=== PATIENT | male | born 1975 | race Caucasian/White ===

== ENCOUNTER 2016-11-29 20:40 | Emergency (ER) | payer OTHER ==
[2016-11-29 21:00] VITALS: BP 158/90; PULSE 85; TEMP 98.6; BMI 42.2
--- NOTE | 2016-11-29 21:37 | PDOC ---
History of Present Illness - General Chief Complaint: Pain, Acute Stated Complaint: STOMACH PAIN AND BLOOD IN URINE Time Seen by Provider: 11/29/16 21:37 - History of Present Illness Initial Comments: 11/29/16 23:48 The patient was examined by [KYLAH Sharma] under my direct supervision. I personally evaluated the patient. I concur with the above findings and the plan of care. Past History - Past Medical History Allergies/Adverse Reactions: Allergies Allergy/AdvReac Type Severity Reaction Status Date / Time No Known Allergies Allergy Verified 11/29/16 21:00 Home Medications: Ambulatory Orders NK [No Known Home Medication] 11/29/16 - Psycho/Social/Smoking Cessation Hx Suicidal Ideation: No Smoking History: Never smoked Hx Alcohol Use: No *Physical Exam - Vital Signs Last Vital Signs Temp Pulse Resp BP Pulse Ox 98.6 F 85 18 158/90 98 11/29/16 20:56 11/29/16 20:56 11/29/16 20:56 11/29/16 20:56 11/29/16 20:56 ED Treatment Course - LABORATORY CBC & Chemistry Diagram: 11/29/16 22:08 11/29/16 22:08 *DC/Admit/Observation/Transfer Diagnosis at time of Disposition: Renal calculus, left - Discharge Dispostion Disposition: HOME Condition at time of disposition: Improved - Referrals Referrals: Arthur Arroyo MD., MD [Staff Physician] - - Patient Instructions Printed Discharge Instructions: DI for Kidney Stones Additional Instructions: Increase fluids Take tylenol/motrin as needed for pain Follow up with your urologist or the one listed on your discharge Return back to the ER for severe/persistent/worsening symptoms
--- NOTE | 2016-11-29 22:23 | PDOC ---
History of Present Illness - General Chief Complaint: Pain, Acute Stated Complaint: STOMACH PAIN AND BLOOD IN URINE Time Seen by Provider: 11/29/16 21:37 History Source: Patient Exam Limitations: No Limitations - History of Present Illness Travel History: No Timing/Duration: reports: gone now Past History - Travel Traveled outside of the country in the last 30 days: No Close contact w/someone who was outside of country & ill: No - Past Medical History Allergies/Adverse Reactions: Allergies Allergy/AdvReac Type Severity Reaction Status Date / Time No Known Allergies Allergy Verified 11/29/16 21:00 Home Medications: Ambulatory Orders NK [No Known Home Medication] 11/29/16 - Psycho/Social/Smoking Cessation Hx Suicidal Ideation: No Smoking History: Never smoked Hx Alcohol Use: No Abd/GI Specific PMHX - Complaint Specific PMHX Diverticulitis: No Gall Bladder Disease: No Hepatitis: No Review of Systems - Review of Systems Able to Perform ROS?: Yes Comments:: 11/29/16 22:22 CONSTITUTIONAL: Absent: fever, chills, diaphoresis, generalized weakness, malaise, loss of appetite HEENT: Absent: rhinorrhea, nasal congestion, throat pain, throat swelling, difficulty swallowing, mouth swelling, ear pain, eye pain, visual Changes CARDIOVASCULAR: Absent: chest pain, loss of consciousness, palpitations, irregular heart rate, peripheral edema RESPIRATORY: Absent: cough, shortness of breath, dyspnea with exertion, orthopnea, wheezing, stridor, hemoptysis GASTROINTESTINAL: Absent: abdominal pain, abdominal distension, nausea, vomiting, diarrhea, constipation, melena, hematochezia GENITOURINARY: +hematuria Absent: dysuria, frequency, urgency, hesitancy, flank pain, genital pain MUSCULOSKELETAL: Absent: myalgia, arthralgia, joint swelling SKIN: Absent: rash, itching, pallor HEMATOLOGIC/IMMUNOLOGIC: Absent: easy bleeding, easy bruising, lymphadenopathy, frequent infections ENDOCRINE: Absent: unexplained weight gain, unexplained weight loss, heat intolerance, cold intolerance NEUROLOGIC: Absent: headache, focal weakness or paresthesias, dizziness, unsteady gait, seizure, mental status changes, bladder or bowel incontinence PSYCHIATRIC: Absent: anxiety, depression, suicidal or homicidal ideation, hallucinations. Is the patient limited Turkmen proficient: No *Physical Exam - Vital Signs Last Vital Signs Temp Pulse Resp BP Pulse Ox 98.6 F 85 18 158/90 98 11/29/16 20:56 11/29/16 20:56 11/29/16 20:56 11/29/16 20:56 11/29/16 20:56 - Physical Exam Comments: 11/29/16 22:22 GENERAL: Well developed, well nourished. Awake and alert. No acute distress. HEENT: Normocephalic, atraumatic. PERRLA, EOMI. No conjunctival pallor. Sclera are non- icteric. Moist mucous membranes. Oropharynx is clear. NECK: Supple. Full ROM. No JVD. Carotid pulses 2+ and symmetric, without bruits. No thyromegaly. No lymphadenopathy. CARDIOVASCULAR: Regular rate and rhythm. No murmurs, rubs, or gallops. Distal pulses are 2+ and symmetric. PULMONARY: No evidence of respiratory distress. Lungs clear to auscultation bilaterally. No wheezing, rales or rhonchi. ABDOMINAL: Soft. Non-tender. Non-distended. No rebound or guarding. No organomegaly. Normoactive bowel sounds. MUSCULOSKELETAL Normal range of motion at all joints. No bony deformities or tenderness. No CVA tenderness. EXTREMITIES: No cyanosis. No clubbing. No edema. No calf tenderness. SKIN: Warm and dry. Normal capillary refill. No rashes. No jaundice. NEUROLOGICAL: Alert, awake, appropriate. Cranial nerves 2-12 intact. No deficits to light touch and temperature in face, upper extremities and lower extremities. No motor deficits in the in face, upper extremities and lower extremities. Normoreflexic in the upper and lower extremities. Normal speech. Toes are down- going bilaterally. Gait is normal without ataxia. PSYCHIATRIC: Cooperative. Good eye contact. Appropriate mood and affect. ED Treatment Course - LABORATORY CBC & Chemistry Diagram: 11/29/16 22:08 11/29/16 22:08 - RADIOLOGY Radiology Studies Ordered: Category Date Time Status SPIRAL- RENAL-STONE CT [CT] Stat CT Scan 11/29/16 22:09 Ordered Progress Note - Progress Note Progress Note: 41-year-old male presents to the emergency department with his complaining of hematuria patient states while voiding just prior to his arrival to the emergency department, he felt a sharp pain but was relieved immediately after voiding. Patient states he noticed a little black pebble come out causing tinge hematuria. Patient denies any nausea/vomiting, fever/chills, chest pain, shortness of breath, abdominal pains or flank pains. No history of renal colic *DC/Admit/Observation/Transfer Diagnosis at time of Disposition: Calculus of left kidney - Discharge Dispostion Disposition: HOME Condition at time of disposition: Improved Admit: No - Referrals Referrals: Arthur Arroyo MD., MD [Staff Physician] - - Patient Instructions Printed Discharge Instructions: DI for Kidney Stones Additional Instructions: Increase fluids Take tylenol/motrin as needed for pain Follow up with your urologist or the one listed on your discharge Return back to the ER for severe/persistent/worsening symptoms
[2016-11-29 22:31] LABS: BASOPHIL 0.9 % (0-2.0); EOSINOPHIL 2.2 % (0-4.5); MCH 28.4 pg (25.7-33.7); MCHC 33.8 g/dl (32.0-35.9); MEAN CELL VOLUME 83.9 fl (80-96); MEAN PLT VOLUME 8.6 fl (7.5-11.1); NEUTROPHILS 57.2 % (42.8-82.8); PLATELET COUNT 201 K/MM3 (134-434); WHITE BLOOD COUNT 6.6 K/mm3 (4.0-10.0)
[2016-11-29 22:32] LABS: URINE APPEARANCE CLEAR; URINE BILIRUBIN NEGATIVE (NEGATIVE); URINE BLOOD NEGATIVE (NEGATIVE); URINE COLOR STRAW; URINE GLUCOSE (UA) NEGATIVE (NEGATIVE); URINE KETONE NEGATIVE (NEGATIVE); URINE LEUK ESTERASE NEGATIVE (NEGATIVE); URINE NITRITE NEGATIVE (NEGATIVE); URINE PROTEIN NEGATIVE (NEGATIVE); URINE UROBILINOGEN 2.0 E.U/dl E.U./dl (0.2-1.0)
[2016-11-29 22:56] LABS: ALBUMIN 3.9 g/dl (3.4-5.0); ANION GAP 9 (8-16); CALCIUM 8.7 mg/dL (8.5-10.1); CO2 27 mmol/L (21-32); CREATININE 0.9 mg/dL (0.7-1.3); GLUCOSE,RANDOM 86 mg/dL (74-106); SGPT/ALT 69 U/L (12-78)
[2016-11-29 22:57] LABS: ALK PHOS 94 U/L (45-117); BILIRUBIN,TOTAL 0.6 mg/dL (0.2-1.0); TOT PROT 7.3 g/dl (6.4-8.2)
[2016-11-29 23:00] LABS: SGOT/AST 32 U/L (15-37)
== END 2016-11-29 23:57 | disposition home or self-care (01) ==
LOC: JER 20:40
DX: N20.0 Calculus of kidney (principal)
CPT/HCPCS: 36415; 74176; 80053; 81003; 85025; 87086; 99283-25

== ENCOUNTER 2017-03-27 01:25 | Emergency (ER) | payer OTHER ==
[2017-03-27 02:23] VITALS: BMI 40.6
[2017-03-27] MEDS ORDERED: SODIUM CHLORIDE 1,000 ML IV STA ×2 (02:34→04:00)
[2017-03-27] MEDS ORDERED: ONDANSETRON 4 MG/2 ML VIAL IVPB ONE (02:34)
[2017-03-27] MEDS ORDERED: HYDROmorphone HCL CARPU-JECT 1 MG/1 ML DISP.SYRIN IVPUSH ONE (02:34)
[2017-03-27] MEDS ORDERED: KETOROLAC TROMETHAMINE 30 MG/1 ML VIAL IVPUSH ONE (02:34)
[2017-03-27] MEDS ORDERED: HYDROmorphone HCL CARPU-JECT 1 MG/1 ML DISP.SYRIN ONE (02:39)
[2017-03-27] MEDS ORDERED: ONDANSETRON 4 MG/2 ML VIAL ONE (02:40)
[2017-03-27] MEDS ORDERED: KETOROLAC TROMETHAMINE 30 MG/1 ML VIAL ONE (02:40)
[2017-03-27 02:59] LABS: BASOPHIL 0.7 % (0-2.0); EOSINOPHIL 1.5 % (0-4.5); MCH 27.9 pg (25.7-33.7); MCHC 32.9 g/dl (32.0-35.9); MEAN CELL VOLUME 84.6 fl (80-96); MEAN PLT VOLUME 8.9 fl (7.5-11.1); NEUTROPHILS 62.5 % (42.8-82.8); PLATELET COUNT 172 K/MM3 (134-434); RDW 13.9 % (11.9-15.9); WHITE BLOOD COUNT 6.5 K/mm3 (4.0-10.0)
[2017-03-27 03:21] LABS: ALBUMIN 3.8 g/dl (3.4-5.0); AMYLASE 32 U/L (25-115); ANION GAP 10 (8-16); BILIRUBIN,TOTAL 0.8 mg/dL (0.2-1.0); CALCIUM 8.5 mg/dL (8.5-10.1); CO2 26 mmol/L (21-32); COCKROFT - GAULT 186.13; CREATININE 1.1 mg/dL (0.7-1.3); GLUCOSE,RANDOM 107 mg/dL (74-106); SGOT/AST 28 U/L (15-37); SGPT/ALT 55 U/L (12-78); TOT PROT 6.6 g/dl (6.4-8.2)
[2017-03-27 03:22] LABS: ALK PHOS 58 U/L (45-117)
[2017-03-27] MEDS ORDERED: TAMSULOSIN HCL 0.4 MG CAP.ER.24H (FP) PO ONE (04:00)
[2017-03-27] MEDS ORDERED: TAMSULOSIN HCL 0.4 MG CAP.ER.24H (FP) ONE (04:08)
--- NOTE | 2017-03-27 04:17 | PDOC ---
History of Present Illness - General Chief Complaint: Pain Stated Complaint: PAIN Time Seen by Provider: 03/27/17 02:10 History Source: Patient Exam Limitations: No Limitations - History of Present Illness Travel History: No Initial Comments: 03/27/17 04:10 41yo male patient w/ PmHx: Renal colic, overweight presents to ED c/o left flank pain radiating to lower abd. Patient states symptoms began last week with hematuria. He states Saturday night experiencing left flank pain, Saturday- hematuria. Patient states he was waiting for symptoms to pass, but while trying to sleep tonight; he experienced severe left flank/low back pain that made him nauseous. Associated chills. Timing/Duration: reports: getting worse Quality: reports: severe Abdominal Pain Onset Location: reports: flank Pain Radiation: reports: groin Activities at Onset: reports: no specific activity Treatment Prior to Arrive: worse with: analgesics, antacids, cold pack, heat, laxative, enema, other Aggravating Factors: worse with: None, Defecation, Eating, Emotional upset, Exertion, [place], Movement, Voiding, Change in position Alleviating Factors: worse with: None, Belching, Shallow Breathing, Defecation, Eating, Holding Breath, Passing Gas, Change in Position, Rest, Voiding, Vomiting Past History - Travel Traveled outside of the country in the last 30 days: No Close contact w/someone who was outside of country & ill: No - Past Medical History Allergies/Adverse Reactions: Allergies Allergy/AdvReac Type Severity Reaction Status Date / Time No Known Allergies Allergy Verified 03/27/17 02:23 Home Medications: Ambulatory Orders Ciprofloxacin [Cipro -] 500 mg PO BID #20 tablet 03/27/17 Ibuprofen [Motrin -] 600 mg PO Q6H PRN #20 tablet 03/27/17 Oxycodone HCl/Acetaminophen [Percocet 10-325 mg Tablet] 1 each PO Q6H PRN #20 tablet MDD 4 tabs 03/27/17 Tamsulosin HCl [Flomax] 0.4 mg PO DAILY #20 capsule 03/27/17 - Psycho/Social/Smoking Cessation Hx Suicidal Ideation: No Smoking History: Never smoked Have you smoked in the past 12 months: No Information on smoking cessation initiated: No Hx Alcohol Use: No Drug/Substance Use Hx: No Abd/GI Specific PMHX - Complaint Specific PMHX Diverticulitis: No Gall Bladder Disease: No Hepatitis: No Review of Systems - Review of Systems Able to Perform ROS?: Yes Is the patient limited Macanese proficient: No Constitutional: Yes: Chills. No: Fever Respiratory: No: Cough, Shortness of Breath, Stridor, Wheezing Cardiac (ROS): No: Chest Pain, Edema, Lightheadedness, Palpitations, Syncope, Chest Tightness ABD/GI: Yes: Nausea. No: Constipated, Diarrhea, Poor Appetite, Poor Fluid Intake, Rectal Bleeding, Vomiting, Abdominal cramping : Yes: Flank Pain, Hematuria. No: Burning, Dysuria, Discharge, Frequency, Urgency Musculoskeletal: No: Back Pain Integumentary: No: Bruising, Erythema, Rash, Sweating Neurological: No: Headache, Seizure, Tingling, Dizziness All Other Systems: Reviewed and Negative *Physical Exam - Vital Signs Last Vital Signs Temp Pulse Resp BP Pulse Ox 97.4 F L 63 18 147/97 100 03/27/17 02:12 03/27/17 02:12 03/27/17 02:12 03/27/17 02:12 03/27/17 02:12 - Physical Exam General Appearance: Yes: Nourished, Appropriately Dressed, Apparent Distress, Severe Distress. No: Mild Distress, Moderate Distress Neck: positive: Trachea midline, Supple. negative: Decreased range of motion, Stridor, Lymphadenopathy (R), Lymphadenopathy (L) Respiratory/Chest: positive: Lungs Clear, Normal Breath Sounds. negative: Chest Tender, Respiratory Distress, Accessory Muscle Use, Labored Respiration, Rapid RR, Crackles, Rales, Stridor, Wheezing Cardiovascular: positive: Regular Rhythm, Regular Rate. negative: S1, S2, Edema Gastrointestinal/Abdominal: positive: Normal Bowel Sounds, Tender, Soft, Distended, Tenderness (LLQ). negative: Guarding, Rebound, Hernia Musculoskeletal: positive: Normal Inspection, CVA Tenderness (L). negative: Decreased Range of Motion, Muscle Spasm, Vertebral Tenderness Extremity: positive: Normal Capillary Refill, Normal Inspection, Normal Range of Motion. negative: Pedal Edema, Swelling, Calf Tenderness, Erythema, Inflammation Integumentary: positive: Normal Color, Dry, Warm. negative: Cold, Clammy, Moist , Hives, Swelling Neurologic: positive: clinical asst II-XII NML intact, Fully Oriented, Alert, Normal Mood/ Affect, Normal Response, Motor Strength 03/08 ED Treatment Course - LABORATORY CBC & Chemistry Diagram: 03/27/17 02:48 03/27/17 02:48 - ADDITIONAL ORDERS Additional order review: Laboratory Results 03/27/17 02:48 Sodium 139 Potassium 3.5 Chloride 103 Carbon Dioxide 26 Anion Gap 10 BUN 17 D Creatinine 1.1 D Creat Clearance w eGFR > 60 Random Glucose 107 H D Calcium 8.5 Total Bilirubin 0.8 D AST 28 ALT 55 D Alkaline Phosphatase 58 D Total Protein 6.6 Albumin 3.8 Total Amylase 32 Lipase 131 03/27/17 02:48 RBC 5.02 MCV 84.6 MCHC 32.9 RDW 13.9 MPV 8.9 Neutrophils % 62.5 Lymphocytes % 25.3 Monocytes % 10.0 Eosinophils % 1.5 Basophils % 0.7 - RADIOLOGY Radiology Studies Ordered: Category Date Time Status ABDOMEN & PELVIS CT W/O CONTR [CT] Stat CT Scan 03/27/17 02:34 Taken - Medications Given in the ED: ED Medications Discontinued Medications Generic Name Dose Route Start Last Admin Trade Name Freq PRN Reason Stop Dose Admin Hydromorphone HCl 1 mg 03/27/17 02:34 03/27/17 02:53 Dilaudid Injection - IVPUSH 03/27/17 02:35 1 mg ONCE ONE Administration Sodium Chloride 1,000 mls @ 1,000 mls/hr 03/27/17 02:34 03/27/17 02:54 Normal Saline - IV 03/27/17 03:33 1,000 mls/hr ASDIR STA Administration Ketorolac Tromethamine 30 mg 03/27/17 02:34 03/27/17 02:54 Toradol Injection - IVPUSH 03/27/17 02:35 30 mg ONCE ONE Administration Ondansetron HCl 4 mg 03/27/17 02:34 03/27/17 02:55 Zofran Injection IVPB 03/27/17 02:35 4 mg ONCE ONE Administration *DC/Admit/Observation/Transfer Diagnosis at time of Disposition: Renal calculus, left - Discharge Dispostion Disposition: HOME Condition at time of disposition: Improved Admit: No - Prescriptions Prescriptions: Ciprofloxacin [Cipro -] 500 mg PO BID #20 tablet Tamsulosin HCl [Flomax] 0.4 mg PO DAILY #20 capsule Ibuprofen [Motrin -] 600 mg PO Q6H PRN #20 tablet PRN Reason: Mild Pain Oxycodone HCl/Acetaminophen [Percocet 10-325 mg Tablet] 1 each PO Q6H PRN #20 tablet MDD 4 tabs PRN Reason: Severe Pain - Referrals Referrals: Michael Grimm MD [Staff Physician] - - Patient Instructions Printed Discharge Instructions: Kidney Stones -- Adult Additional Instructions: FOLLOW UP WITH DR. GRIMM (UROLOGY). CALL TO SCHEDULE APPOINTMENT. TAKE MEDICATIONS PRESCRIBED. DO NOT DRIVE, DRINK ALCOHOL, OR OPERATE HEAVY MACHINERY WHILE TAKING PERCOCET. DRINK PLENTY WATER. IF SYMPTOMS WORSEN, OR FEVER, NAUSEA, VOMITING, BACK PAIN RETURN FOR FURTHER EVALUATION. Print Language: CHILEAN - Post Discharge Activity Work/School Note: Back to Work
--- NOTE | 2017-03-27 05:23 | PDOC ---
*Physical Exam - Vital Signs Last Vital Signs Temp Pulse Resp BP Pulse Ox 97.4 F L 63 18 147/97 100 03/27/17 02:12 03/27/17 02:12 03/27/17 02:12 03/27/17 02:12 03/27/17 02:12 ED Treatment Course - LABORATORY CBC & Chemistry Diagram: 03/27/17 02:48 03/27/17 02:48 - ADDITIONAL ORDERS Additional order review: Laboratory Results 03/27/17 02:48 Sodium 139 Potassium 3.5 Chloride 103 Carbon Dioxide 26 Anion Gap 10 BUN 17 D Creatinine 1.1 D Creat Clearance w eGFR > 60 Random Glucose 107 H D Calcium 8.5 Total Bilirubin 0.8 D AST 28 ALT 55 D Alkaline Phosphatase 58 D Total Protein 6.6 Albumin 3.8 Total Amylase 32 Lipase 131 03/27/17 02:48 RBC 5.02 MCV 84.6 MCHC 32.9 RDW 13.9 MPV 8.9 Neutrophils % 62.5 Lymphocytes % 25.3 Monocytes % 10.0 Eosinophils % 1.5 Basophils % 0.7 - Medications Given in the ED: ED Medications Discontinued Medications Generic Name Dose Route Start Last Admin Trade Name Freq PRN Reason Stop Dose Admin Hydromorphone HCl 1 mg 03/27/17 02:34 03/27/17 02:53 Dilaudid Injection - IVPUSH 03/27/17 02:35 1 mg ONCE ONE Administration Sodium Chloride 1,000 mls @ 1,000 mls/hr 03/27/17 02:34 03/27/17 02:54 Normal Saline - IV 03/27/17 03:33 1,000 mls/hr ASDIR STA Administration Sodium Chloride 1,000 mls @ 1,000 mls/hr 03/27/17 04:00 03/27/17 04:12 Normal Saline - IV 03/27/17 04:59 1,000 mls/hr ASDIR STA Administration Ketorolac Tromethamine 30 mg 03/27/17 02:34 03/27/17 02:54 Toradol Injection - IVPUSH 03/27/17 02:35 30 mg ONCE ONE Administration Ondansetron HCl 4 mg 03/27/17 02:34 03/27/17 02:55 Zofran Injection IVPB 03/27/17 02:35 4 mg ONCE ONE Administration Tamsulosin HCl 0.8 mg 03/27/17 04:00 03/27/17 04:12 Flomax - PO 03/27/17 04:01 0.8 mg ONCE ONE Administration Medical Decision Making - Medical Decision Making 03/27/17 05:23 agree with care from CRISPIN Torres *DC/Admit/Observation/Transfer Diagnosis at time of Disposition: Renal calculus, left - Discharge Dispostion Condition at time of disposition: Stable Admit: No - Prescriptions Prescriptions: Ciprofloxacin [Cipro -] 500 mg PO BID #20 tablet Tamsulosin HCl [Flomax] 0.4 mg PO DAILY #20 capsule Ibuprofen [Motrin -] 600 mg PO Q6H PRN #20 tablet PRN Reason: Mild Pain Oxycodone HCl/Acetaminophen [Percocet 10-325 mg Tablet] 1 each PO Q6H PRN #20 tablet MDD 4 tabs PRN Reason: Severe Pain - Referrals Referrals: Michael Grimm MD [Staff Physician] -
[2017-03-27 05:35] LABS: URINE APPEARANCE CLEAR; URINE BILIRUBIN NEGATIVE (NEGATIVE); URINE COLOR STRAW; URINE GLUCOSE (UA) NEGATIVE (NEGATIVE); URINE KETONE TRACE (NEGATIVE); URINE LEUK ESTERASE NEGATIVE (NEGATIVE); URINE NITRITE NEGATIVE (NEGATIVE); URINE PROTEIN NEGATIVE (NEGATIVE); URINE UROBILINOGEN NEGATIVE E.U./dl (0.2-1.0)
[2017-03-27 05:46] LABS: URINE BLOOD 2+ (NEGATIVE)
[2017-03-27 05:47] LABS: URINE MUCUS RARE; URINE RBC 65 /hpf (0-3); URINE WBC 2 /hpf (3-5)
[2017-03-27 06:22] VITALS: BP 137/78; PULSE 72; TEMP 97.9
== END 2017-03-27 06:25 | disposition home or self-care (01) ==
LOC: JER 01:25
PROC: 3E0337Z Introduction of Electrolytic and Water Balance Substance into Peripheral Vein, Percutaneous Approach (ICD-10-PCS; principal; 2017-03-27)
PROC: 3E033NZ Introduction of Analgesics, Hypnotics, Sedatives into Peripheral Vein, Percutaneous Approach (ICD-10-PCS; 2017-03-27)
PROC: 3E0333Z Introduction of Anti-inflammatory into Peripheral Vein, Percutaneous Approach (ICD-10-PCS; 2017-03-27)
PROC: 3E033GC Introduction of Other Therapeutic Substance into Peripheral Vein, Percutaneous Approach (ICD-10-PCS; 2017-03-27)
DX: N20.0 Calculus of kidney (principal)
CPT/HCPCS: 36415; 74176-TC; 80053; 81003; 81015; 82150; 83690; 85025; 87086; 99282-25

== ENCOUNTER 2023-11-06 03:15 | Emergency (ER) | payer OTHER ==
[2023-11-06 03:46] VITALS: RESP 18; TEMP 98.7; BMI 46.8
[2023-11-06 04:30] VITALS: BP 170/100; PULSE 76
== END 2023-11-06 04:39 | disposition home or self-care (01) ==
LOC: JER 03:15
DX: U07.1 COVID-19 (principal); I10 Essential (primary) hypertension; F41.9 Anxiety disorder, unspecified
CPT/HCPCS: 0241U-QW; 93005; 93010; 99284-25